=== PATIENT | female | born 1960 | race Caucasian/White ===

== ENCOUNTER 2016-09-26 21:42 | Emergency (ER) | payer OTHER ==
[~2016-09-26] VITALS: Ht 157.5 cm; Wt 78.0 kg
[~2016-09-26 21:42] MED LIST: CHOL20004 PO; SIMV10TA2 PO
--- NOTE | 2016-09-26 23:00 | NUR ---
Pt came into ER via wheelchair c/o lower back pain radiating to left leg. denies trauma to area.
[2016-09-26] MEDS: DIAZEPAM 2 MG TABLET PO ONE (23:39)
[2016-09-26] MEDS ORDERED: DIAZEPAM 2 MG TABLET ONE (23:46)
--- NOTE | 2016-09-27 00:34 | NUR ---
Patient discharged to home in stable conditon with daughter taking Pt Home. Written and verbal after care instructions given. Patient verbalizes understanding of instructions.
[2016-09-27 00:38] VITALS: BP 128/75
== END 2016-09-27 00:39 | disposition home or self-care (01) ==
LOC: ER 21:49
DX: M54.10 Radiculopathy, site unspecified (principal); M54.30 Sciatica, unspecified side; G43.909 Migraine, unspecified, not intractable, without status migrainosus; M19.90 Unspecified osteoarthritis, unspecified site
CPT/HCPCS: 99283; A4663

== ENCOUNTER 2016-09-30 20:28 | Emergency (ER) | payer OTHER ==
[~2016-09-30] VITALS: Ht 157.5 cm; Wt 78.0 kg
[2016-09-30] MEDS ORDERED: predniSONE 20 MG TABLET PO ONE (21:00)
[2016-09-30] MEDS ORDERED: CARISOPRODOL 350 MG TABLET PO ONE (21:00)
[2016-09-30] MEDS ORDERED: KETOROLAC TROMETHAMINE 30 MG INJ IM ONE (21:00)
[2016-09-30] MEDS ORDERED: predniSONE 20 MG TABLET ONE (21:02)
[2016-09-30] MEDS ORDERED: KETOROLAC TROMETHAMINE 30 MG INJ ONE (21:02)
[2016-09-30] MEDS ORDERED: CARISOPRODOL 350 MG TABLET ONE (21:03)
--- NOTE | 2016-09-30 21:51 | NUR ---
Patient discharged to home in stable conditon. Written and verbal after care instructions given. Patient verbalizes understanding of instructions.
[2016-09-30 21:54] VITALS: BP 141/72
== END 2016-09-30 21:51 | disposition home or self-care (01) ==
LOC: ER 20:28
DX: M54.41 Lumbago with sciatica, right side (principal); G43.909 Migraine, unspecified, not intractable, without status migrainosus; M19.90 Unspecified osteoarthritis, unspecified site; Z88.6 Allergy status to analgesic agent
CPT/HCPCS: 72131; A4663; J1885; J7512

== ENCOUNTER 2017-07-27 10:18 | Emergency (ER) | payer OTHER ==
[~2017-07-27] VITALS: Ht 157.5 cm; Wt 80.7 kg
[2017-07-27] MEDS ORDERED: PRED2.5T PO (10:38)
[2017-07-27] MEDS ORDERED: ETAN50DI2 SQ (10:38)
[2017-07-27] MEDS ORDERED: IBUPROFEN PO (10:38)
[2017-07-27] MEDS ORDERED: HYDROMORPHONE 1 MG/1 ML DISP.SYRIN IM ONE (10:45)
[2017-07-27] MEDS ORDERED: PROMETHAZINE HCL 25 MG/1 ML VIAL IM ONE (10:45)
--- NOTE | 2017-07-27 10:47 | NUR ---
PT IS IN ROOM #2A. DR MANZO EVALUATED THE PT.
[2017-07-27] MEDS ORDERED: HYDROMORPHONE 1 MG/1 ML DISP.SYRIN ONE (10:57)
[2017-07-27] MEDS ORDERED: PROMETHAZINE HCL 25 MG/1 ML VIAL ONE (10:57)
--- NOTE | 2017-07-27 11:21 | NUR ---
PT WAS D/C TO HOME AFTER ER MD EVALUATION. D/C INSTRUCTIONS GIVEN TO THE PT.
[2017-07-27 11:22] VITALS: BP 132/81
== END 2017-07-27 11:23 | disposition home or self-care (01) ==
LOC: ER 10:23
DX: G43.909 Migraine, unspecified, not intractable, without status migrainosus (principal); E11.9 Type 2 diabetes mellitus without complications; M19.90 Unspecified osteoarthritis, unspecified site; Z88.8 Allergy status to other drugs, medicaments and biological substances
CPT/HCPCS: 70450; 96372 ×2; 99284; A4663; J1170; J2550

== ENCOUNTER 2017-08-27 19:31 | Emergency (ER) | payer OTHER ==
[~2017-08-27] VITALS: Ht 157.5 cm; Wt 78.0 kg
[~2017-08-27 19:31] MED LIST changes: +ETAN50DI2 SQ; +IBUPROFEN PO; +PRED2.5T PO; -SIMV10TA2 PO
--- NOTE | 2017-08-27 20:14 | NUR ---
PT IN BED. PT'S DAUGHTER AT BEDSIDE. PT IS ALERT AND ORIENTED X 4. BREATHING IS REGULAR AND UNLABORED. PT IN TONIGHT W/ C/O LOW BACK PAIN 03/24. AWAITING [facility]. Addendum: 08/27/17 at 2111 by JCALLOWAY PT REPORTS PAIN W/ BREATHING AND MOVEMENTS. PT DENIES ANY TRAUMA TO THE AREA.
[2017-08-27] MEDS: CELECOXIB 100 MG CAPSULE PO ONE (20:32)
[2017-08-27] MEDS ORDERED: CELECOXIB 100 MG CAPSULE ONE (20:48)
--- NOTE | 2017-08-27 22:13 | NUR ---
pt in no distress, pt able to ambulate in a steady gait, pt's daughter at bedside for translation, pt advised to f/u with pmd or return to er for worsening of symptoms,verbalizes understanding, list possible epidural centres and X- ray given to pt per 's order. rx given to pt
== END 2017-08-27 22:17 | disposition home or self-care (01) ==
LOC: ER 19:32
DX: M54.6 Pain in thoracic spine (principal); M19.90 Unspecified osteoarthritis, unspecified site; E11.9 Type 2 diabetes mellitus without complications; Z88.5 Allergy status to narcotic agent; G43.909 Migraine, unspecified, not intractable, without status migrainosus
CPT/HCPCS: 72072; A4663

== ENCOUNTER 2018-10-28 21:01 | Emergency (ER) | payer OTHER ==
[~2018-10-28] VITALS: Ht 157.5 cm; Wt 65.8 kg
--- NOTE | 2018-10-28 22:20 | NUR ---
Female activities manager, cas nursing supervisor airplane flight attendant at bedside; accompanied female patient for (DR ANDREW ).
[2018-10-28] MEDS ORDERED: ACYCLOVIR 200 MG CAPSULE ONE (23:05)
[2018-10-28] MEDS ORDERED: predniSONE 20 MG TABLET ONE (23:05)
[2018-10-28] MEDS: predniSONE 20 MG TABLET PO ONE (23:06)
[2018-10-28] MEDS: ACYCLOVIR 400 MG TABLET PO ONE (23:06)
--- NOTE | 2018-10-28 23:06 | NUR ---
Patient discharged to home in stable conditon. Written and verbal after care instructions given. Patient verbalizes understanding of instructions. Patient ambulated with stable gait.
[2018-10-28 23:07] VITALS: BP 140/60
== END 2018-10-28 23:07 | disposition home or self-care (01) ==
LOC: ER 21:03
DX: B02.9 Zoster without complications (principal); M54.5 Low back pain; Z88.5 Allergy status to narcotic agent; Z88.8 Allergy status to other drugs, medicaments and biological substances; Z79.1 Long term (current) use of non-steroidal anti-inflammatories (NSAID); Z79.899 Other long term (current) drug therapy
CPT/HCPCS: 99283; J7512; A4663

== ENCOUNTER 2019-10-05 15:49 | Emergency (ER) | payer OTHER ==
[~2019-10-05] VITALS: Ht 157.5 cm; Wt 80.3 kg
--- NOTE | 2019-10-05 16:05 | NUR ---
Patient ambulated into ER w/ steady gait. Pt A&O x4. Pt w/ C/O right lower quadrant pain radiating to her back that started 1 hr ago w/ 5 episodes of vomiting. Safety measures provided bed in lowest position, side rails up x2, call light within reach.
[2019-10-05] MEDS ORDERED: KETOROLAC TROMETHAMINE 30 MG INJ IVP ONE (16:45)
[2019-10-05] MEDS ORDERED: IV NORMAL SALINE 1000 ML BAG IV ONE (16:45)
[2019-10-05] MEDS ORDERED: ONDANSETRON 4 MG/2 ML VIAL IV ONE (16:45)
[2019-10-05 16:47] LABS: BASOPHILS # (AUTO) 0.1 K/uL (0.0-8.0); BASOPHILS % (AUTO) 0.9 % (0.0-2.0); EOSINOPHILS # (AUTO) 0.4 K/uL (0.0-0.7); EOSINOPHILS % (AUTO) 3.8 % (0.0-7.0); HEMATOCRIT 34.9 % (31.2-41.9); HEMOGLOBIN 11.9 g/dL (10.9-14.3); LYMPHOCYTES # (AUTO) 2.9 K/uL (20.0-40.0); MEAN CORPUSCULAR HEMOGLOBIN 32.5 uug (24.7-32.8); MEAN CORPUSCULAR HGB CONC 34 g/dL (32.3-35.6); MEAN CORPUSCULAR VOLUME 94.9 fL (75.5-95.3); MONOCYTES # (AUTO) 0.5 K/uL (2.0-10.0); MONOCYTES % (AUTO) 5.6 % (0.0-11.0); NEUTROPHILS # (AUTO) 5.7 K/uL (1.8-8.9); NEUTROPHILS % (AUTO) 59.7 % (38.5-71.5); PLATELET COUNT (AUTO) 297 K/uL (179-408); RED BLOOD CELL COUNT(AUTO) 3.68 MIL/uL (3.63-4.92); WHITE BLOOD COUNT (AUTO) 9.6 K/uL (3.8-11.8)
[2019-10-05 16:49] LABS: *BILIRUBIN,URIN NEGATIVE (NEGATIVE); *BLOOD, URINE 2+ (NEGATIVE); *COLOR,URINE YELLOW (YELLOW); *KETONES,URINE NEGATIVE (NEGATIVE); *UROBILINOGEN,URINE 0.2 E.U./dl (NORMAL); LEUKOCYTE ESTERASE ,URINE NEGATIVE (NEGATIVE); NITRITE, URINE NEGATIVE (NEGATIVE); PH,URINE 6.5 (5.0-8.0); UGLUCOSE NEGATIVE (NEGATIVE)
[2019-10-05] MEDS ORDERED: KETOROLAC TROMETHAMINE 30 MG INJ ONE (16:51)
[2019-10-05] MEDS ORDERED: ONDANSETRON 4 MG/2 ML VIAL ONE (16:52)
[2019-10-05 16:58] LABS: *CLARITY,URINE HAZY (CLEAR)
[2019-10-05 17:00] LABS: *URINE HCG, QUAL NEGATIVE (NEGATIVE)
[2019-10-05 17:04] LABS: BACTERIA,URINE FEW /HPF (NONE SEEN); SQUAMOUS EPITHELIAL CELL,UR FEW /HPF (NONE SEEN); WBC,URINE 0-3 /HPF (0-3)
[2019-10-05 17:07] LABS: BILIRUBIN,DIRECT 0.1 mg/dL (0.0-0.2); BILIRUBIN,TOTAL 0.2 mg/dL (0.2-1.0); CREATININE 0.9 mg/dL (0.6-1.3); POTASSIUM 3.4 mmol/L (3.5-5.1); TOTAL PROTEIN, SERUM 8.1 g/dL (6.4-8.2)
[2019-10-05] MEDS ORDERED: MAGNESIUM CITRATE 296 ML BOTTLE PO ONE (18:00)
[2019-10-05] MEDS ORDERED: MAGNESIUM CITRATE 296 ML BOTTLE ONE (18:03)
--- NOTE | 2019-10-05 18:17 | NUR ---
IV removed. Catheter intact and site benign. Pressure and 4x4 gauze applied to site. No bleeding noted.
[2019-10-05 18:19] VITALS: BP 122/60
--- NOTE | 2019-10-05 18:21 | NUR ---
Patient discharged to home in stable conditon. Written and verbal after care instructions given. Patient verbalizes understanding of instructions.
== END 2019-10-05 18:21 | disposition home or self-care (01) ==
LOC: ER 15:49
DX: K59.00 Constipation, unspecified (principal); R31.29 Other microscopic hematuria; M06.9 Rheumatoid arthritis, unspecified; G43.909 Migraine, unspecified, not intractable, without status migrainosus; Z88.6 Allergy status to analgesic agent
CPT/HCPCS: 36415; 74176; 80048; 80076; 81000; 81001; 83690; 84703; 85025; 99284; J1885; J2405; A4663